=== PATIENT | female | born 1980 | race Two or more races ===

== ENCOUNTER → 2017-01-29 | Outpatient (CLI) | payer OTHER | LOC: FIMAGING 09:36 | PROVIDERS: ATTEND Internal Medicine | DX: Z03.89 Encounter for observation for other suspected diseases and conditions ruled out (principal); R05 Cough; J45.31 Mild persistent asthma with (acute) exacerbation ==

== ENCOUNTER → 2017-04-13 | Outpatient (CLI) | payer OTHER | LOC: CIMAGING 16:49 | PROVIDERS: ATTEND Internal Medicine | DX: R05 Cough (principal); R50.9 Fever, unspecified | CPT/HCPCS: 71020-PO ==